=== PATIENT | male | born 1940 | race Caucasian/White ===

== ENCOUNTER 2020-03-16 18:16 | Emergency (ER) | payer MEDICARE, OTHER ==
[~2020-03-16] VITALS: Ht 180.3 cm; Wt 84.6 kg
--- NOTE | 2020-03-16 18:57 | NUR ---
REPORT GIVEN TO JULIAN HINES.
[2020-03-16] MEDS ORDERED: POTASSIUM CHLORIDE 40 MEQ in SODIUM CHLORIDE 0.9% 500 ML IV ONE (19:00)
[2020-03-16] MEDS ORDERED: FOLIC ACID 1 MG TABLET PO ONE (19:00)
[2020-03-16] MEDS ORDERED: MAGNESIUM SULFATE PMX 2GM/50ML 50 ML IV ONE (19:00)
--- NOTE | 2020-03-16 19:00 | NUR ---
RECIEVED REPORT, ASSUMED CARE OF A 79 YEAR OLD MALE TO ED FOR LOW K AND MG. HE DENIES ANY SYMPTOMS OTHER THAN FATIGUE. AAO X 4, GCS 15, NAD. WCM.
[2020-03-16] MEDS ORDERED: MAGNESIUM SULFATE PMX 2GM/50ML 50 ML ONE (19:13)
--- NOTE | 2020-03-16 21:52 | NUR ---
REPORT RECEIVED FROM JULIAN BRISCOE. PLAN OF CARE DISCUSSED.
[2020-03-16 22:00] VITALS: BP 119/70
--- NOTE | 2020-03-16 23:00 | NUR ---
PATIENT RESTING ON GURNEY, RESPIRATIONS EVEN AND UNLABORED. VSS. NADN AT THIS TIME. PATIENT ANXIOUS TO LEAVE
--- NOTE | 2020-03-16 23:28 | NUR ---
Patient given discharge instructions and they have confirmed that they understand the instructions. Patient ambulatory with steady gait.
== END 2020-03-16 18:41 ==
LOC: ED 18:40
DX: E87.6 Hypokalemia (principal); E83.42 Hypomagnesemia; R00.0 Tachycardia, unspecified
CPT/HCPCS: 93005; 96365; 96366; 96368; 99285; J3475; J3480; J7040